=== PATIENT | male | born 1985 ===

== ENCOUNTER 2018-02-05 22:30 | Emergency (ER) | payer OTHER ==
[2018-02-05 22:30] VITALS: BMI 26.6
--- NOTE | 2018-02-06 01:12 | ED PDOC ---
HPI: Psych/Substance Abuse Time Seen by Provider: 02/05/18 22:43 Chief Complaint (Nursing): Psychiatric Evaluation Chief Complaint (Provider): "I want to know if I have something" History Per: Patient History/Exam Limitations: no limitations Additional Complaint(s): 33 yo male with no medical problems or psychiatric history presents for psychiatric evaluation. Pt states he wants and evaluation becuase his sister and mother have psychiatric illness and he is homeless with several arrests. Past Medical History Reviewed: Historical Data, Nursing Documentation, Vital Signs Vital Signs: Last Vital Signs Temp 98.2 F 02/05/18 22:37 Pulse 78 02/05/18 22:37 Resp 18 02/05/18 22:37 BP 148/94 H 02/05/18 22:37 Pulse Ox 99 02/05/18 22:37 - Medical History PMH: Anxiety Denies: Diabetes, Hepatitis, HIV, HTN, Chronic Kidney Disease, Seizures, Sexually Transmitted Disease - Surgical History Surgical History: No Surg Hx - Family History Family History: States: No Known Family Hx - Living Arrangements Living Arrangements: With Family - Social History Current smoker - smoking cessation education provided: No - Immunization History Hx Tetanus Toxoid Vaccination: No - Home Medications Home Medications: Ambulatory Orders Medication Instructions Recorded levoFLOXacin [Levaquin] 750 mg PO DAILY #7 tab 10/28/17 - Allergies Allergies/Adverse Reactions: Allergies Allergy/AdvReac Type Severity Reaction Status Date / Time No Known Allergies Allergy Verified 10/25/17 12:03 Review of Systems ROS Statement: Except As Marked, All Systems Reviewed And Found Negative Constitutional: Negative for: Fever, Chills Psych: Negative for: Anxiety, Depression, Psychosis, Suicidal ideation, Withdrawal Physical Exam - Reviewed Nursing Documentation Reviewed: Yes Vital Signs Reviewed: Yes - Physical Exam Appears: Positive for: Well, Non-toxic, No Acute Distress Head Exam: Positive for: ATRAUMATIC, NORMAL INSPECTION, NORMOCEPHALIC Skin: Positive for: Normal Color, Warm, DRY Eye Exam: Positive for: Normal appearance ENT: Positive for: Normal ENT Inspection Neck: Positive for: Normal, Painless ROM Cardiovascular/Chest: Positive for: Regular Rate, Rhythm Respiratory: Positive for: CNT, Normal Breath Sounds Back: Positive for: Normal Inspection Extremity: Positive for: Normal ROM Neurologic/Psych: Positive for: Alert, Oriented - ECG O2 Sat by Pulse Oximetry: 99 Medical Decision Making Medical Decision Making: Crisis evaluation completed. Disposition - Clinical Impression Clinical Impression: Adjustment disorder - Disposition Disposition: Routine/Home Disposition Time: 01:15 Condition: GOOD Instructions: Adjustment Disorder
[2018-02-06 02:08] VITALS: BP 129/65; PULSE 64; RESP 16; TEMP 97.6; O2SAT 95
== END 2018-02-06 02:22 | disposition home or self-care (01) ==
LOC: H.ER 22:30
DX: F43.22 Adjustment disorder with anxiety (principal); Z00.8 Encounter for other general examination